=== PATIENT | female | born 1990 | race African-American/Black ===

== ENCOUNTER 2018-12-19 15:59 | Emergency (ER) | payer MEDICAID ==
[~2018-12-19] VITALS: Ht 160 cm; Wt 57.2 kg
[2018-12-19 16:09] VITALS: Ht 160 cm; Wt 57.2 kg
[2018-12-19 18:32] VITALS: BP 130/96
== END 2018-12-19 18:32 | disposition home or self-care (01) ==
LOC: ED 15:59
DX: S61.012A Laceration without foreign body of left thumb without damage to nail, initial encounter (principal); W20.8XXA Other cause of strike by thrown, projected or falling object, initial encounter; Y93.89 Activity, other specified; Y92.89 Other specified places as the place of occurrence of the external cause; Y99.8 Other external cause status
CPT/HCPCS: J2001